=== PATIENT | female | born 1975 | race Caucasian/White ===

== ENCOUNTER 2016-11-16 17:50 | Emergency (ER) | payer OTHER ==
[~2016-11-16] VITALS: Ht 170.2 cm; Wt 61.6 kg
[2016-11-16 17:54] VITALS: BP 137/86
== END 2016-11-16 18:51 | disposition home or self-care (01) ==
LOC: ED 18:40
DX: L02.11 Cutaneous abscess of neck (principal)
CPT/HCPCS: 99283